=== PATIENT | female | born 1990 | race Caucasian/White ===

== ENCOUNTER 2019-08-14 16:15 | Emergency (ER) | payer OTHER ==
[~2019-08-14] VITALS: Ht 154.9 cm; Wt 77.0 kg
[2019-08-14] MEDS ORDERED: ACETAMINOPHEN 325MG TABLET PO ONE (18:00)
[2019-08-14 18:48] LABS: CHLORIDE 106 mEq/L (98-107)
[2019-08-14 18:50] LABS: PARTIAL THROMBOPLASTIN TIME 23.3 sec (23.4-31.0); PROTHROMBIN TIME 10.5 sec (9.6-11.0)
[2019-08-14 18:52] LABS: BASOPHILS % 0.8 % (0.0-2.0); EOSINOPHILS % 0.9 % (0.0-5.0); HEMATOCRIT. 24.2 % (36.0-48.0); HEMOGLOBIN. 7.8 g/dL (12.0-16.0); LYMPHOCYTES % 28.8 % (20.0-50.0); MEAN CORPUSCULAR HEMOGLOBIN 24.2 pg (28.0-32.0); MEAN CORPUSCULAR VOLUME 74.8 fL (81.0-99.0); MONOCYTES % 6.8 % (2.0-8.0); NEUTROPHILS % 62.7 % (40.0-76.0); PLATELET 501 x1000/uL (130-400); RED BLOOD CELL COUNT 3.24 mill/uL (4.2-5.4); RED CELL DISTRIBUTION WIDTH 13.7 % (11.6-14.6)
[2019-08-14 18:59] LABS: B-HCG QUANTITATIVE < 1 mIU/mL (<3)
[2019-08-14 19:50] LABS: CLARITY URINE CLEAR (CLEAR); COLOR URINE YELLOW (YELLOW); KETONES URINE NEGATIVE (NEGATIVE); LEUKOCYTE ESTERASE URINE TRACE (NEGATIVE); NITRITE URINE NEGATIVE (NEGATIVE); OCCULT BLOOD URINE 3+ (NEGATIVE); PROTEIN URINE NEGATIVE (NEGATIVE); SPECIFIC GRAVITY URINE 1.021 (1.005-1.030); UROBILINOGEN URINE 0.2 E.U./dL (0.2-1.0)
[2019-08-14 21:00] VITALS: BP 118/67
== END 2019-08-14 22:04 | disposition home or self-care (01) ==
LOC: ER 16:15
DX: N93.8 Other specified abnormal uterine and vaginal bleeding (principal); N39.0 Urinary tract infection, site not specified; D50.9 Iron deficiency anemia, unspecified
CPT/HCPCS: 36415; 76830; 76856; 81003; 84702; 86850; 86900; 99284